=== PATIENT | male | born 1985 | race Caucasian/White ===

== ENCOUNTER 2019-12-23 06:57 | Emergency (ER) | payer BC ==
[~2019-12-23] VITALS: Ht 185.4 cm; Wt 122.0 kg
[~2019-12-23 06:57] MED LIST: CLIN150C14 PO; DOXY100C2 PO
[2019-12-23 07:49] VITALS: BP 158/78
[2019-12-23] MEDS: KETOROLAC 60 MG/2 ML VIAL. IM ONE (08:12)
[2019-12-23] MEDS ORDERED: CYCL10TA2 PO (08:46)
[2019-12-23] MEDS ORDERED: METH4TAB2 PO (08:46)
[2019-12-23] MEDS ORDERED: TRAM-48 PO (08:46)
--- NOTE | 2019-12-23 08:46 | PHYS DOC ---
Past Medical History Past Medical History: Abscess, MRSA, Other Additional Past Medical Histor: Hep C- last test was negative, CHRONIC STAPH INFECTIONS Past Surgical History: Other Additional Past Surgical Histo: ABSCESS SX, R ankle Smoking Status: Current Every Day Smoker Alcohol Use: None Drug Use: Phencyclidine Adult General Chief Complaint Chief Complaint: LOWER BACK PAIN OR INJURY [facility] HPI Patient is a 34 year old male with history of Hep C- last test was negative, CHRONIC STAPH INFECTION who presents with pain, back pain. Patient states he has had low back pain since yesterday that getting worse today and not able to move around and walking without problem. Patient rated his pain 10 over 10 and denies eating and bowel incontinence, fever and chills, nausea and vomiting, abdominal pain, history of the same pain, focal neuro deficit.. Patient has frequent emergency room visits. Review of Systems Review of Systems Constitutional: Denies fever or chills [] Eyes: Denies change in visual acuity, redness, or eye pain [] HENT: Denies nasal congestion or sore throat [] Respiratory: Denies cough or shortness of breath [] Cardiovascular: No additional information not addressed in HPI [] GI: Denies abdominal pain, nausea, vomiting, bloody stools or diarrhea [] : Denies dysuria or hematuria [] Musculoskeletal: Reports back pain Integument: Denies rash or skin lesions [] Neurologic: Denies headache, focal weakness or sensory changes [] Endocrine: Denies polyuria or polydipsia [] All other systems were reviewed and found to be within normal limits, except as documented in this note. Current Medications Current Medications Current Medications Medications (Trade) Dose Ordered Sig/[facility] Start Time Stop Time Status Last Admin Dose Admin Ketorolac Tromethamine (Toradol Im) 60 mg 1X ONCE 12/23/19 08:15 12/23/19 08:16 DC 12/23/19 08:12 60 MG Allergies Allergies Allergies Coded Allergies Type Severity Reaction Last Updated Verified No Known Drug Allergies 07/11/14 No Physical Exam Physical Exam Constitutional: Well developed, well nourished, mild distress, non-toxic appearance. [] HENT: Normocephalic, atraumatic. Eyes: PERRLA, EOMI, conjunctiva normal, no discharge. [] Neck: Normal range of motion, no tenderness, supple, no stridor. [] Cardiovascular:Heart rate regular rhythm, no murmur [] Lungs & Thorax: Bilateral breath sounds clear to auscultation [] Abdomen: Bowel sounds normal, soft, no tenderness, no masses, no pulsatile masses. [] Skin: Warm, dry, no erythema, no rash. [] Back: No tenderness, left paraspinal muscle spasm no CVA tenderness. [] Extremities: No tenderness, no cyanosis, no clubbing, ROM intact, no edema. [] Neurologic: Alert and oriented X 3, no focal deficits noted. [] Psychologic: Affect normal, judgement normal, mood normal. [] Current Patient Data Vital Signs Vital Signs Date Time Temp Pulse Resp B/P (MAP) Pulse Ox O2 Delivery O2 Flow Rate FiO2 12/23/19 07:49 97.8 88 18 158/78 (104) 98 Room Air 97.8 EKG EKG [] Radiology/Procedures Radiology/Procedures [] Course & Med Decision Making Course & Med Decision Making discharge: I've spoken with the patient and/or caregivers. I've explained the patient's condition, diagnosis and treatment plan based on information available to me at this time. I've answered the patient's and/or caregivers questions and addressed any concerns. The patient and/or caregivers have a good understanding the patient's diagnosis, condition and treatment plan as can be expected at this point. Vital signs have been stabilized. The patient's condition is stable for discharge from the emergency department. The patient will pursue further outpatient evaluation with her primary care provider or other designated consulting physician as outlined in the discharge instructions. Patient and/or caregivers are agreeable to this plan of care and follow-up instructions have been explained in detail. The patient and/or caregivers have received these instructions in written format and expressed understanding of these discharge instructions. The patient and her caregivers are aware that if any significant change in condition or worsening of symptoms should prompt him to immediately return to this of the closest emergency department. If an emergent department is not readily available I would encourage him to call 911. Atul Disclaimer Atul Disclaimer This electronic medical record was generated, in whole or in part, using a voice recognition dictation system. Departure Departure Impression: Primary Impression: Acute lumbosacral myofascial strain Disposition: HOME, SELF-CARE (at [phone]) Condition: IMPROVED Referrals: NO PCP (PCP) Patient Instructions: Lumbosacral Strain Additional Instructions: Drink plenty of liquids Follow-up with your primary care physician in 3-5 days Return to ER if not getting better Apply ice on your back Thank you for visiting [facility]. We appreciate you trusting us with your care. If any additional problems come up don't hesitate to return to visit us. Please follow up with your primary care provider so they can plan additional care if needed and know about the problem that you had. If symptoms worsen come back to the Emergency Department. Any concerning symptoms that start such as chest pain, shortness of air, weakness or numbness on one side of the body, running high fevers or any other concerning symptoms return to the ER. Scripts Tramadol Hcl (ULTRAM) 50 Mg Tablet 50 MG PO Q6HRS PRN for PAIN, #14 TAB 0 Refills Prov: KUSH MARTINEZ MD 12/23/19 Methylprednisolone (MEDROL) 4 Mg Tab.ds.pk 1 PKG PO UD for inflammation, #1 PKG Prov: KUSH MARTINEZ MD 12/23/19 Cyclobenzaprine Hcl (CYCLOBENZAPRINE HCL) 10 Mg Tablet 1 TAB PO TID, #21 TAB Prov: KUSH MARTINEZ MD 12/23/19 Problem Qualifiers Primary Impression: Acute lumbosacral myofascial strain Encounter type: initial encounter Qualified Codes: S39.012A - Strain of muscle, fascia and tendon of lower back, initial encounter KUSH MARTINEZ MD Dec 23, 2019 08:46
== END 2019-12-23 09:16 | disposition home or self-care (01) ==
LOC: ER 06:57
DX: S39.012A Strain of muscle, fascia and tendon of lower back, initial encounter (principal); B95.8 Unspecified staphylococcus as the cause of diseases classified elsewhere; F15.90 Other stimulant use, unspecified, uncomplicated; F17.200 Nicotine dependence, unspecified, uncomplicated; Z98.890 Other specified postprocedural states; X58.XXXA Exposure to other specified factors, initial encounter; Y93.89 Activity, other specified; Y92.89 Other specified places as the place of occurrence of the external cause; Y99.8 Other external cause status
CPT/HCPCS: 96372; 99283; J1885